=== PATIENT | male | born 1995 | race Caucasian/White ===

== ENCOUNTER 2016-07-02 21:42 | Emergency (ER) | payer OTHER ==
[2016-07-02 22:25] VITALS: BP 133/92; PULSE 65; TEMP 98.1; BMI 25.0
[2016-07-02] MEDS ORDERED: OXYCODONE/APAP 5/325MG COMBO TABLET PO ONE (23:04)
[2016-07-02] MEDS ORDERED: IBUPROFEN 400 MG TABLET (FP) PO ONE ×2 (23:04→23:30)
--- NOTE | 2016-07-02 23:08 | PDOC ---
*Physical Exam - Vital Signs Last Vital Signs Temp Pulse Resp BP Pulse Ox 98.1 F 65 16 133/92 100 07/02/16 22:22 07/02/16 22:22 07/02/16 22:22 07/02/16 22:22 07/02/16 22:22 Medical Decision Making - Medical Decision Making 07/02/16 23:08 agree with care from [facility] *DC/Admit/Observation/Transfer Diagnosis at time of Disposition: Right knee pain - Discharge Dispostion Disposition: HOME - Prescriptions Prescriptions: Ibuprofen [Motrin -] 600 mg PO Q6H PRN #20 tablet PRN Reason: Mild Pain Oxycodone HCl/Acetaminophen [Percocet 5-325 mg Tablet] 1 tab PO Q6H PRN #12 tablet MDD 4 tabs PRN Reason: Severe Pain - Referrals Referrals: Nydia Hawkins [Non Staff, Medical] - Boris Arroyo MD [Staff Physician] - - Patient Instructions Printed Discharge Instructions: DI for Knee Pain Additional Instructions: FOLLOW UP DR. ARROYO (ORTHOPEDIC) OR DR. HAWKINS (FAMILY MEDICINE) REGARDING YOUR VISIT TODAY. CALL TO SCHEDULE ANY APPOINTMENTS. TAKE MEDICATIONS PRESCRIBED. DO NOT DRIVE, DRINK ALCOHOL, OR OPERATE HEAVY MACHINERY WHILE TAKING PERCOCET. APPLY COLD COMPRESS TO AFFECTED AREA EVERY 2-4 HOURS ON AND OFF FOR 10-15 MINS NEEDED FOR PAIN. Print Language: MAORI
[2016-07-02] MEDS ORDERED: OXYCODONE/APAP 5/325MG COMBO TABLET ONE (23:30)
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
== END 2016-07-03 01:11 | disposition home or self-care (01) ==
LOC: JER 21:42
DX: M25.561 Pain in right knee (principal); X02.8XXA Other exposure to controlled fire in building or structure, initial encounter; Y92.89 Other specified places as the place of occurrence of the external cause; Y99.0 Civilian activity done for income or pay; Y93.89 Activity, other specified
CPT/HCPCS: 99282-25

== ENCOUNTER 2023-05-22 09:46 | Emergency (ER) | payer BC, OTHER ==
[2023-05-22] MEDS ORDERED: ACETAMINOPHEN 500 MG TABLET (FP) PO ONE (10:03)
[2023-05-22] MEDS ORDERED: KETOROLAC TROMETHAMINE 30 MG/1 ML VIAL IM ONE (10:03)
[2023-05-22] MEDS ORDERED: ACETAMINOPHEN 500 MG TABLET (FP) ONE (10:09)
[2023-05-22] MEDS ORDERED: KETOROLAC TROMETHAMINE 30 MG/1 ML VIAL ONE (10:09)
[2023-05-22 10:10] VITALS: BP 138/84; PULSE 96; RESP 16; TEMP 98.4; BMI 27.1
== END 2023-05-22 11:40 | disposition home or self-care (01) ==
LOC: JERFT 09:46
PROC: 3E0233Z Introduction of Anti-inflammatory into Muscle, Percutaneous Approach (ICD-10-PCS; principal; 2023-05-22)
DX: M25.512 Pain in left shoulder (principal); X50.0XXA Overexertion from strenuous movement or load, initial encounter
CPT/HCPCS: 73030-TC-LT-FY; 99284-25

== ENCOUNTER 2024-06-18 05:56 | Emergency (ER) | payer OTHER ==
[2024-06-18 06:10] VITALS: BP 128/80; PULSE 100; RESP 20; TEMP 98; BMI 27.1
[2024-06-18] MEDS ORDERED: ACETAMINOPHEN 500 MG TABLET (FP) PO ONE (06:54)
== END 2024-06-18 07:35 | disposition home or self-care (01) ==
LOC: JER 05:56
DX: S43.402A Unspecified sprain of left shoulder joint, initial encounter (principal); X08.8XXA Exposure to other specified smoke, fire and flames, initial encounter
CPT/HCPCS: 99283-25